=== PATIENT | male | born 1965 | race American Indian/Alaskan Native ===

== ENCOUNTER 2016-12-07 21:31 | Emergency (ER) | payer SELFPAY ==
[2016-12-07] MEDS ORDERED: CATAPRES PO ONE (22:08)
[2016-12-08] MEDS ORDERED: THORAZINE IM ONE (06:41)
[2016-12-08 06:59] LABS: Basophils % (Auto) 0.5 % (0.0-1.8); Eosinophils % (Auto) 1.1 % (0.0-4.3); Hematocrit 39.7 % (35.5-45.6); Hemoglobin 13.2 gm/dl (11.8-15.2); Mean Corpuscular HGB Conc 33 % (32-34); Mean Corpuscular Hemoglobin 30 pg (28-32); Mean Corpuscular Volume 91 fl (84-94); Platelet Count 171 K/mm3 (140-440); Red Blood Count 4.35 M/mm3 (3.65-5.03); Red Cell Distribution Width 14.2 % (13.2-15.2); White Blood Count 4.9 K/mm3 (4.5-11.0)
--- NOTE | 2016-12-08 07:23 | Emergency Department Report ---
ED General Adult HPI - General Chief complaint: Pain General Stated complaint: HICCUPS Time Seen by Provider: 12/08/16 06:18 Source: patient Mode of arrival: Ambulatory Limitations: No Limitations - History of Present Illness Initial comments: 51-year-old male with a past medical history hypertension and DM presents to the hospital complaints of intractable hiccups for last 6 days. Symptoms are intermittent. No fever, pain, chest pain, shortness of breath, weight loss, nausea, or vomiting reported. Patient had midepigastric pain several days ago that improved after Tums. Patient presents with elevated blood pressure and did not have his blood pressure medication yesterday but has been otherwise compliant. - Related Data Previous Rx's Medication Instructions Recorded Last Taken Type chlorproMAZINE [Thorazine] 25 mg PO Q6H #12 tab 12/08/16 Unknown Rx Allergies Allergy/AdvReac Type Severity Reaction Status Date / Time No Known Allergies Allergy Verified 12/07/16 21:50 ED Review of Systems ROS: Stated complaint: HICCUPS Other details as noted in HPI Comment: All other systems reviewed and negative Other: Constitutional: No fevers chills Eyes: No eye pain visual changes ENT: No ear pain or throat pain Neck: Denies pain Respiratory: Denies cough wheezing shortness of breath Cardiovascular: Denies chest pain, palpitations, syncope GI: Denies abdominal pain, nausea, vomiting, diarrhea : Denies dysuria Musculoskeletal: Denies back pain Skin: Denies rash, lesions, erythema Neurologic: Denies headache, numbness, weakness Psychiatric: Denies suicidal ideation, hallucinations ED Past Medical Hx - Past Medical History Hx Hypertension: Yes Hx Diabetes: Yes (noninsuin) - Surgical History Past Surgical History?: No - Social History Smoking Status: Never Smoker Substance Use Type: None - Medications Home Medications: Home Medications Medication Instructions Recorded Confirmed Last Taken Type chlorproMAZINE [Thorazine] 25 mg PO Q6H #12 tab 12/08/16 Unknown Rx ED Physical Exam - General Limitations: No Limitations - Other Other exam information: General: No limitations, patient is alert in no acute distress Head exam: Atraumatic, normocephalic Eyes exam: Normal appearance, pupils equal reactive to light, extraocular movements intact ENT: Moist mucous membrane, normal oropharynx Neck exam: Normal inspection, full range of motion, no meningismus nontender Respiratory exam: Clear to auscultation bilateral, no wheezes, rales, crackles Cardiovascular: Normal rate and rhythm, normal heart sounds Abdomen: Soft, nondistended, and nontender, with normal bowel sounds, no rebound, or guarding Extremity: Full range of motion normal inspection no deformity Back: Normal Inspection, full range of motion, no tenderness Neurologic: Alert, oriented x3, cranial nerves intact, no motor or sensory deficit Psychiatric: normal affect, normal mood Skin: Warm, dry, intact ED Course Vital Signs 12/07/16 12/07/16 12/08/16 21:50 22:12 00:42 Pulse Rate 84 74 Respiratory 16 18 Rate Blood Pressure 196/120 196/120 166/101 O2 Sat by Pulse 95 Oximetry 12/08/16 12/08/16 12/08/16 02:38 02:40 02:45 Pulse Rate Respiratory 18 Rate Blood Pressure 140/84 O2 Sat by Pulse 98 97 Oximetry 12/08/16 12/08/16 12/08/16 03:00 03:21 03:41 Pulse Rate Respiratory Rate Blood Pressure 133/86 128/85 136/85 O2 Sat by Pulse 100 98 99 Oximetry 12/08/16 12/08/16 12/08/16 04:00 04:21 04:41 Pulse Rate Respiratory Rate Blood Pressure 139/93 146/94 153/92 O2 Sat by Pulse 98 100 99 Oximetry - Reevaluation(s) Reevaluation #1: 12/08/16 09:12 Throazine helped intractable hiccups. Glucose mildly elevated. Patient had 2 apple juices in the ED. Patient has oral medication at home for diabetes - Consultations Consultation #1: 12/08/[address] Fly GRIFFITHS and recommended outpatient follow-up ED Medical Decision Making - Lab Data Result diagrams: 12/08/16 06:45 12/08/16 06:45 Lab Results 12/08/16 12/08/16 12/08/16 Range/Units 06:45 06:45 06:45 WBC 4.9 (4.5-11.0) K/mm3 RBC 4.35 (3.65-5.03) M/mm3 Hgb 13.2 (11.8-15.2) gm/dl Hct 39.7 (35.5-45.6) % MCV 91 (84-94) fl MCH 30 (28-32) pg MCHC 33 (32-34) % RDW 14.2 (13.2-15.2) % Plt Count 171 (140-440) K/mm3 Lymph % (Auto) 53.1 H (13.4-35.0) % [place] % (Auto) 7.1 (0.0-7.3) % Eos % (Auto) 1.1 (0.0-4.3) % Baso % (Auto) 0.5 (0.0-1.8) % Lymph # 2.6 (1.2-5.4) K/mm3 Assumption # 0.4 (0.0-0.8) K/mm3 Eos # 0.1 (0.0-0.4) K/mm3 Baso # 0.0 (0.0-0.1) K/mm3 Seg Neutrophils % 38.2 L (40.0-70.0) % Seg Neutrophils # 1.9 (1.8-7.7) K/mm3 Sodium 141 (137-145) mmol/L Potassium 3.7 (3.6-5.0) mmol/L Chloride 101.9 (98-107) mmol/L Carbon Dioxide 25 (22-30) mmol/L Anion Gap 18 mmol/L BUN 12 (9-20) mg/dL Creatinine 1.1 (0.8-1.5) mg/dL Estimated GFR > 60 ml/min BUN/Creatinine Ratio 10.90 % Glucose 267 H (75-100) mg/dL POC Glucose (70-105) Hemoglobin A1c 11.6 H (4-6) % Calcium 8.6 (8.4-10.2) mg/dL Total Bilirubin 0.70 (0.1-1.2) mg/dL AST 17 (5-40) units/L ALT 18 (7-56) units/L Alkaline Phosphatase 58 (35-129) units/L Total Protein 6.3 (6.3-8.2) g/dL Albumin 3.8 L (3.9-5) g/dL Albumin/Globulin Ratio 1.5 % Amylase 39 (27-131) units/L Lipase 39 (13-60) units/L 12/08/ Range/Units 09:01 WBC (4.5-11.0) K/mm3 RBC (3.65-5.03) M/mm3 Hgb (11.8-15.2) gm/dl Hct (35.5-45.6) % MCV (84-94) fl MCH (28-32) pg MCHC (32-34) % RDW (13.2-15.2) % Plt Count (140-440) K/mm3 Lymph % (Auto) (13.4-35.0) % [place] % (Auto) (0.0-7.3) % Eos % (Auto) (0.0-4.3) % Baso % (Auto) (0.0-1.8) % Lymph # (1.2-5.4) K/mm3 [place] # (0.0-0.8) K/mm3 Eos # (0.0-0.4) K/mm3 Baso # (0.0-0.1) K/mm3 Seg Neutrophils % (40.0-70.0) % Seg Neutrophils # (1.8-7.7) K/mm3 Sodium (137-145) mmol/L Potassium (3.6-5.0) mmol/L Chloride (98-107) mmol/L Carbon Dioxide (22-30) mmol/L Anion Gap mmol/L BUN (9-20) mg/dL Creatinine (0.8-1.5) mg/dL Estimated GFR ml/min BUN/Creatinine Ratio % Glucose (75-100) mg/dL POC Glucose 279 H (70-105) Hemoglobin A1c (4-6) % Calcium (8.4-10.2) mg/dL Total Bilirubin (0.1-1.2) mg/dL AST (5-40) units/L ALT (7-56) units/L Alkaline Phosphatase (35-129) units/L Total Protein (6.3-8.2) g/dL Albumin (3.9-5) g/dL Albumin/Globulin Ratio % Amylase (27-131) units/L Lipase (13-60) units/L - Medical Decision Making Patient instructed to take his diabetes medication when he gets home. No signs of DKA. Hemoglobin A1c elevation suggest poorly controlled diabetes over time. Significant other states that patient has been poorly compliant with diet and not taking his sugars at home. Patient will receive additional during seeing for symptomatic treatment of intractable hiccups. GI follow-up and PMD follow- up will be encouraged. - Differential Diagnosis uremia, liver failure, intractable hiccups, gastric distention Critical Care Time: No Critical care attestation.: If time is entered above; I have spent that time in minutes in the direct care of this critically ill patient, excluding procedure time. ED Disposition Clinical Impression: Intractable hiccups, Uncontrolled diabetes mellitus Disposition: TO HOME OR SELFCARE Is pt being admited?: No Does the pt Need Aspirin: No Condition: Stable Instructions: Diabetes Mellitus Type 2 in Adults (ED), Hiccups (ED) Additional Instructions: Follow with the primary care clinic and GI doctor provided. Use a good RX card provided to make medications more affordable. Continue your diabetes medication when you get home. Return if symptoms worsen. Prescriptions: chlorproMAZINE [Thorazine] 25 mg PO Q6H #12 tab Referrals: [facility] [Provider Group] - 3-5 Days CHUCKY SCHNEIDER MD [Staff Physician] - 2-3 Days (GI doctor ) Time of Disposition: 09:18
[2016-12-08 07:24] LABS: Alanine Aminotransferase 18 units/L (7-56); Albumin 3.8 g/dL (3.9-5); Albumin/Globulin Ratio 1.5 %; Alkaline Phosphatase 58 units/L (35-129); Amylase 39 units/L (27-131); Anion Gap 18 mmol/L; Blood Urea Nitrogen 12 mg/dL (9-20); Calcium 8.6 mg/dL (8.4-10.2); Carbon Dioxide 25 mmol/L (22-30); Chloride 101.9 mmol/L (98-107); Glucose 267 mg/dL (75-100); Lipase 39 units/L (13-60); Potassium 3.7 mmol/L (3.6-5.0); Sodium 141 mmol/L (137-145); Total Protein 6.3 g/dL (6.3-8.2)
[2016-12-08] MEDS ORDERED: GLUCOPHAGE PO ONE ×2 (09:04→09:05)
[2016-12-08 09:34] VITALS: BP 147/96
== END 2016-12-08 09:38 | disposition home or self-care (01) ==
LOC: ED 21:31
DX: R06.6 Hiccough (principal); E11.9 Type 2 diabetes mellitus without complications; I10 Essential (primary) hypertension
CPT/HCPCS: 36415; 80053; 82150; 82962; 83036; 83690; 85025; 93005; 93010; 96372; 99283; J3230

== ENCOUNTER 2017-10-14 13:55 | Emergency (ER) | payer OTHER ==
[2017-10-14 14:16] VITALS: BP 157/105
--- NOTE | 2017-10-14 15:44 | Emergency Department Report ---
ED General Adult HPI - General Chief complaint: High BP Stated complaint: HTN Time Seen by Provider: 10/14/17 15:43 Source: patient Mode of arrival: Ambulatory Limitations: No Limitations - History of Present Illness Initial comments: Patient is a 52-year-old [place] male past medical history of hypertension who was sent in from [employer] after job physical with a found his blood pressure was elevated. Patient has no symptoms he denies any chest pain shows a breath headache or focal neurological symptoms. Blood pressure on arrival was 206/ 128. Patient does state his atenolol this morning. - Related Data Previous Rx's Medication Instructions Recorded Last Taken Type chlorproMAZINE [Thorazine] 25 mg PO Q6H #12 tab 12/08/16 Unknown Rx Hydrochlorothiazide [HCTZ] 25 mg PO QDAY #30 tablet 10/14/17 Unknown Rx Allergies Allergy/AdvReac Type Severity Reaction Status Date / Time No Known Allergies Allergy Verified 12/07/16 21:50 ED Review of Systems ROS: Stated complaint: HTN Other details as noted in HPI Comment: All other systems reviewed and negative ED Past Medical Hx - Past Medical History Hx Hypertension: Yes Hx Diabetes: Yes (noninsuin) - Social History Smoking Status: Never Smoker Substance Use Type: None - Medications Home Medications: Home Medications Medication Instructions Recorded Confirmed Last Taken Type chlorproMAZINE [Thorazine] 25 mg PO Q6H #12 tab 12/08/16 Unknown Rx Hydrochlorothiazide [HCTZ] 25 mg PO QDAY #30 tablet 10/14/17 Unknown Rx ED Physical Exam - General Limitations: No Limitations General appearance: alert, in no apparent distress - Head Head exam: Present: atraumatic, normocephalic - Eye Eye exam: Present: normal appearance - ENT ENT exam: Present: mucous membranes moist - Neck Neck exam: Present: normal inspection - Respiratory Respiratory exam: Present: normal lung sounds bilaterally. Absent: respiratory distress - Cardiovascular Cardiovascular Exam: Present: regular rate, normal rhythm. Absent: systolic murmur, diastolic murmur, rubs, gallop - GI/Abdominal GI/Abdominal exam: Present: soft, normal bowel sounds - Rectal Rectal exam: Present: deferred - Extremities Exam Extremities exam: Present: normal inspection - Back Exam Back exam: Present: normal inspection - Neurological Exam Neurological exam: Present: alert, oriented X3 - Psychiatric Psychiatric exam: Present: normal affect, normal mood - Skin Skin exam: Present: warm, dry, intact, normal color. Absent: rash ED Course Vital Signs 10/14/17 10/14/17 14:10 14:15 Temperature 98.1 F Pulse Rate 87 82 Respiratory 18 Rate Blood Pressure 206/128 Blood Pressure 157/105 [Right] O2 Sat by Pulse 98 Oximetry ED Medical Decision Making - Medical Decision Making Patient was given 0.2 Catapres. Patient also have heart chlorothiazide added to his blood pressure regimen and the patient will be discharged home. Critical care attestation.: If time is entered above; I have spent that time in minutes in the direct care of this critically ill patient, excluding procedure time. ED Disposition Clinical Impression: Hypertensive urgency Disposition: DC-01 TO HOME OR SELFCARE Is pt being admited?: No Does the pt Need Aspirin: No Condition: Stable Instructions: Hypertension (ED) Prescriptions: Hydrochlorothiazide [HCTZ] 25 mg PO QDAY #30 tablet Referrals: PRIMARY CARE, [Primary Care Provider] - 3-5 Days
[2017-10-14] MEDS ORDERED: CATAPRES PO ONE (15:48)
== END 2017-10-14 16:21 | disposition home or self-care (01) ==
LOC: ED 13:55
DX: I10 Essential (primary) hypertension (principal); E11.9 Type 2 diabetes mellitus without complications
CPT/HCPCS: 99282